=== PATIENT | male | born 1950 | race African-American/Black ===

== ENCOUNTER 2018-02-24 12:14 | Emergency (ER) | payer BC ==
[2018-02-24 12:34] VITALS: BP 160/123; PULSE 81; TEMP 99.2; BMI 30.4
--- NOTE | 2018-02-24 12:39 | PDOC ---
History of Present Illness - General Chief Complaint: Pain Stated Complaint: TINGLING AND NUMBNESS IN LEFT TOES Time Seen by Provider: 02/24/18 12:15 - History of Present Illness Initial Comments: 67 year old male with no PMH and poor PCP follow up presenting with left foot numbness and tingling for the past year that has acutely worsened over the past few months. He state thte numbness and tingling is worse with walking and and activity and has now begun to interfere with his work occasionally. He is an active 3/4 pack smoker with 25+ pack years. He was told that he had "borderline diabetes" in the past. Denies nausea, vomiting, diarrhea, constipation, fevers, chills, chest pain, SOB at rest/ exertion, or other symptoms. 02/24/18 12:39 Past History - Past Medical History Allergies/Adverse Reactions: Allergies Allergy/AdvReac Type Severity Reaction Status Date / Time No Known Allergies Allergy Verified 02/24/18 12:27 Home Medications: Ambulatory Orders NK [No Known Home Medication] 02/24/18 COPD: No - Surgical History Appendectomy: Yes - Suicide/Smoking/Psychosocial Hx Smoking History: Current every day smoker Number of Cigarettes Smoked Daily: 15 Information on smoking cessation initiated: Yes 'Breaking Loose' booklet given: 02/24/18 Hx Alcohol Use: No Drug/Substance Use Hx: No Substance Use Type: None Review of Systems - Review of Systems Constitutional: No: Chills, Diaphoresis, Fever HEENTM: No: Blurred Vision, Tearing Respiratory: No: Cough, Orthopnea, Shortness of Breath, Stridor Cardiac (ROS): No: Chest Pain, Edema, Irregular Heart Rate ABD/GI: No: Constipated, Diarrhea, Nausea, Vomiting : No: Burning, Dysuria, Discharge, Hematuria Musculoskeletal: No: Back Pain, Joint Pain, Muscle Pain Integumentary: No: Bruising, Change in Color, Flushing, Lesions, Lumps Neurological: No: Headache, Numbness, Paresthesia Endocrine: No: Excessive Sweating, Flushing Hematologic/Lymphatic: No: Anemia, Blood Clots, Easy Bleeding *Physical Exam - Vital Signs Last Vital Signs Temp Pulse Resp BP Pulse Ox 99.2 F 81 16 160/123 99 02/24/18 12:15 02/24/18 12:15 02/24/18 12:15 02/24/18 12:15 02/24/18 12:15 - Physical Exam General Appearance: Yes: Nourished ED Treatment Course - LABORATORY CBC & Chemistry Diagram: 02/24/18 12:45 02/24/18 12:45 Medical Decision Making - Medical Decision Making 67 year old male with PMH of borderline diabetes and extensive smoking history in the setting of poor PCP follow up presenting with left toe numbness/ paresthesias worse with movement. This is most concerning for diabetic nephropathy vs. PVD. Labs roughly WNL so will DC with pcp follow up. 02/24/18 14:15 *DC/Admit/Observation/Transfer Diagnosis at time of Disposition: Peripheral neuropathy Qualifiers: Peripheral neuropathy type: mononeuropathy, other Qualified Code(s): G58.8 - Other specified mononeuropathies - Discharge Dispostion Disposition: HOME Condition at time of disposition: Improved Decision to Admit order: No - Referrals Referrals: [facility] [place] [Provider Group] - Patient Instructions Printed Discharge Instructions: Peripheral Neuropathy Additional Instructions: Your tingling and numbness is probably from nerve damage from your smoking and borderline diabetes. Please follow up at the [facility] or chose one of our many excellent [facility] physicians. Please return to the ED for new or worsening symptoms. - Post Discharge Activity
--- NOTE | 2018-02-24 13:10 | PDOC ---
Attending Attestation - Resident Resident Name: RyanLigiacharleyeva - ED Attending Attestation I have performed the following: I have examined & evaluated the patient, The case was reviewed & discussed with the resident, I agree w/resident's findings & plan, Exceptions are as noted - HPI HPI: 02/24/18 12:46 67-year-old male with past medical history of heavy smoking, borderline diabetes , no primary care physician presents with several months of paresthesia to his left toes. States that he was initially intermittent associated with distal left calf pain upon and bleeding. Patient works for [employer] and works at the local [employer]. 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 Walks frequently throughout the details. Has noticed that his tingling and numbness in his left great toe would persist while walking. Because he had no PMD, came into the ED. - Physicial Exam PE: 02/24/18 12:49 GENERAL: Awake, alert, and fully oriented, in no acute distress. HEAD: No signs of trauma EYES: EOMI, sclera anicteric, conjunctiva clear ENT: Auricles normal inspection, hearing grossly normal, nares patent NECK: Normal ROM, supple EXTREMITIES: LLE: 2+ DP intact. Sensation intact throughout all toes and feet and lower extremities. Ana Lilia sign negative. Pelletier test negative. FROM left ankle. NEUROLOGICAL: Cranial nerves II through XII grossly intact. Normal speech, normal gait SKIN: Warm, Dry, normal turgor, no rashes or lesions noted. - Medical Decision Making 02/24/18 13:10 Vital Signs Temp Pulse Resp BP Pulse Ox 99.2 F 81 16 160/123 99 02/24/18 12:15 02/24/18 12:15 02/24/18 12:15 02/24/18 12:15 02/24/18 12:15 67 yo M p/w several months of intermittent parasthesias. I suspect that the patient is developing peripheral neuropathy. Will check basic labs to look for metabolic disarray and for glucose. If glucose markedly elevated, will need to consider starting on metformin. Will need to refer patient for a PMD. 02/24/18 14:17 CBC, BMP 02/24/18 12:45 02/24/18 12:45 CMP Sodium 137 mmol/L (136-145) 02/24/18 12:45 Potassium 3.9 mmol/L (3.5-5.1) 02/24/18 12:45 Chloride 108 mmol/L (98-107) H 02/24/18 12:45 Carbon Dioxide 22 mmol/L (22-28) 02/24/18 12:45 Anion Gap 7 (8-16) L 02/24/18 12:45 BUN 18 mg/dl (7-18) 02/24/18 12:45 Creatinine 1.3 mg/dl (0.6-1.3) 02/24/18 12:45 Creat Clearance w eGFR 55.40 (>60) 02/24/18 12:45 Random Glucose 84 mg/dl (74-106) 02/24/18 12:45 Calcium 8.9 mg/dl (8.4-10.2) 02/24/18 12:45 Total Bilirubin 0.2 mg/dl (0.2-1.0) 02/24/18 12:45 AST 20 U/L (10-42) 02/24/18 12:45 ALT 15 U/L (10-40) 02/24/18 12:45 Alkaline Phosphatase 45 U/L (32-92) 02/24/18 12:45 Total Protein 7.3 g/dl (6.4-8.3) 02/24/18 12:45 Albumin 4.2 g/dl (3.5-5.0) 02/24/18 12:45 Glucose is unremarkable. However, pt does have elements of likely peripheral neuropathy, perhaps even peripheral vascular disease. Smoke cessation counselling and follow up with a PMD.
[2018-02-24 13:59] LABS: ALBUMIN 4.2 g/dl (3.5-5.0); ALK PHOS 45 U/L (32-92); ANION GAP 7 (8-16); BILIRUBIN,TOTAL 0.2 mg/dl (0.2-1.0); BLOOD UREA NITROGEN 18 mg/dl (7-18); CALCIUM 8.9 mg/dl (8.4-10.2); CHLORIDE 108 mmol/L (98-107); CO2 22 mmol/L (22-28); CREATININE 1.3 mg/dl (0.6-1.3); GLUCOSE,RANDOM 84 mg/dl (74-106); POTASSIUM 3.9 mmol/L (3.5-5.1); SGOT/AST 20 U/L (10-42); SGPT/ALT 15 U/L (10-40); SODIUM 137 mmol/L (136-145); TOT PROT 7.3 g/dl (6.4-8.3)
[2018-02-24 14:01] LABS: BASO % 1.1 % (0-2.0); EOS % 4.9 % (0-4.5); HEMOGLOBIN 14.5 GM/dl (11.7-16.9); LYMPH % 28.5 % (8-40); MCH 28.5 pg (25.7-33.7); MEAN CELL VOLUME 86.3 fl (80-96); MEAN PLT VOLUME 8.1 fl (7.5-11.1); MONO % 6.9 % (3.8-10.2); NEUT % 58.6 % (42.8-82.8); PLATELET COUNT 265 K/MM3 (134-434); RDW 16.6 % (11.9-15.9)
== END 2018-02-24 14:39 | disposition home or self-care (01) ==
LOC: FER 12:14
DX: G58.8 Other specified mononeuropathies (principal); F17.210 Nicotine dependence, cigarettes, uncomplicated; R73.03 Prediabetes
CPT/HCPCS: 36415; 80053; 85025; 99283-25

== ENCOUNTER 2018-06-23 10:15 | Day surgery (SDC) | payer BC ==
[2018-06-22 13:53] VITALS: BMI 36.5
[2018-06-23] MEDS ORDERED: HEPARIN NA (PORCINE) 5,000 UNITS/ML 1ML VIAL ONE (13:08)
[2018-06-23] MEDS ORDERED: LIDOCAINE HCL 2% (20ML MULTI-DOSE VIAL) NR ONE (13:09)
[2018-06-23] MEDS ORDERED: KETOROLAC TROMETHAMINE 30 MG/1 ML VIAL ONE (13:29)
[2018-06-23] MEDS ORDERED: MIDAZOLAM HCL 2 MG/2 ML SINGLE DOSE VIAL ONE ×2 (13:29)
[2018-06-23] MEDS ORDERED: ceFAZolin SODIUM 1 GM VIAL ONE (13:29)
[2018-06-23] MEDS ORDERED: ceFAZolin SODIUM 1 GM VIAL IVPB ONE (13:31)
[2018-06-23] MEDS ORDERED: LIDOCAINE HCL 1%, 10 MG/ML (20ML VIAL) NR ONE ×2 (13:42)
[2018-06-23] MEDS ORDERED: HEPARIN NA (PORCINE) 5,000 UNITS/ML 1ML VIAL SQ ONE (13:45)
[2018-06-23] MEDS ORDERED: PROPOFOL 20 ML ONE (13:49)
[2018-06-23] MEDS ORDERED: oxyCODONE HCL 5 MG TABLET PO PRN (14:29)
[2018-06-23] MEDS ORDERED: PROMETHAZINE HCL 25 MG/1 ML VIAL IVPUSH PRN (14:29)
[2018-06-23] MEDS ORDERED: ONDANSETRON 4 MG/2 ML VIAL IVPUSH PRN (14:29)
[2018-06-23] MEDS ORDERED: LACTATED RINGERS SOLUTION 1,000 ML IV SCH (14:30)
--- NOTE | 2018-06-23 14:37 | HP ---
Admitting History and Physical - Admission Chief Complaint: left lower ext claudication Limitations to Obtaining History: No Limitations - Smoking History Smoking history: Former smoker Have you smoked in the past 12 months: Yes Aproximately how many cigarettes per day: 15 If you are a former smoker, when did you quit?: February 2018 - Alcohol/Substance Use Hx Alcohol Use: No Home Medications - Allergies Allergies/Adverse Reactions: Allergies Allergy/AdvReac Type Severity Reaction Status Date / Time No Known Allergies Allergy Verified 06/23/18 11:38 - Home Medications Home Medications: Ambulatory Orders Aspirin [ASA -] 1 tab PO DAILY 05/09/18 Cholecalciferol (Vitamin D3) [Vitamin D -] 1 tab PO DAILY 05/09/18 Amlodipine Besylate 5 mg PO DAILY 06/22/18 Review of Systems - Review of Systems Constitutional: reports: No Symptoms Eyes: reports: No Symptoms HENT: reports: No Symptoms Neck: reports: No Symptoms Cardiovascular: reports: No Symptoms Respiratory: reports: No Symptoms Gastrointestinal: reports: No Symptoms Genitourinary: reports: No Symptoms Musculoskeletal: reports: No Symptoms Integumentary: reports: No Symptoms Neurological: reports: No Symptoms Endocrine: reports: No Symptoms Hematology/Lymphatic: reports: No Symptoms Psychiatric: reports: No Symptoms Physical Examination Vital Signs: Vital Signs Temperature 98.2 F 06/23/18 11:37 Pulse Rate 64 06/23/18 11:37 Respiratory Rate 20 06/23/18 11:37 Blood Pressure 139/66 06/23/18 11:37 O2 Sat by Pulse Oximetry (%) 100 06/23/18 11:26 Constitutional: Yes: Well Nourished, No Distress, Calm Eyes: Yes: WNL, Conjunctiva Clear, EOM Intact HENT: Yes: WNL, Atraumatic, Normocephalic Neck: Yes: WNL, Supple, Trachea Midline Cardiovascular: Yes: WNL, Regular Rate and Rhythm Respiratory: Yes: WNL, Regular, CTA Bilaterally Gastrointestinal: Yes: WNL, Normal Bowel Sounds Musculoskeletal: Yes: WNL Extremities: Yes: WNL Edema: No Integumentary: Yes: WNL Neurological: Yes: WNL, Alert, Oriented ...Motor Strength: WNL Psychiatric: Yes: WNL Problem List - Problems (1) Left leg claudication Assessment/Plan: Left leg claudication 1. For angiogram today Code(s): I73.9 - PERIPHERAL VASCULAR DISEASE, UNSPECIFIED (2) Left leg pain Code(s): M79.605 - PAIN IN LEFT LEG
--- NOTE | 2018-06-23 14:38 | OP ---
Operative Note - Note: Operative Date: 06/23/18 Pre-Operative Diagnosis: left leg claudication Operation: Aortogram, LLE angiogram, SFA angioplasty with stent Post-Operative Diagnosis: Same as Pre-op Surgeon: Sourav Corbin Anesthesia: Fractional Estimated Blood Loss (mls): 50 Operative Report Dictated: Yes
[2018-06-23] MEDS ORDERED: CLOPIDOGREL BISULFATE 75 MG TABLET (FP) PO SCH (14:45)
[2018-06-23] MEDS ORDERED: CLOPIDOGREL BISULFATE 75 MG TABLET (FP) ONE (14:59)
[2018-06-23 15:14] VITALS: TEMP 98
[2018-06-23 19:33] VITALS: BP 149/60; PULSE 53
--- NOTE | 2018-07-20 15:13 | OP ---
DATE OF OPERATION: 06/23/2018 PREOPERATIVE DIAGNOSIS: Left lower extremity claudication. POSTOPERATIVE DIAGNOSIS: Left lower extremity claudication. PROCEDURE: Aortogram, left lower extremity angiogram, superficial femoral artery angioplasty with stent placement. SURGEON: Sourav Stanford DO ANESTHESIA: Fractional. BLOOD LOSS: 50 mL. INDICATIONS: The patient is a 67-year-old male who came in to see us because he had claudication in his left lower extremity. Preoperative ultrasound showed that he had SFA disease and he needed an angiogram. The patient was consented for this procedure understanding all risks, benefits, and alternatives and then taken to the operating room. DESCRIPTION OF PROCEDURE: Once in the operating room, he was laid on the operating room table in a supine manner. The right and left groin were prepped and draped in a sterile surgical manner. We then went ahead and injected 10 mL of lidocaine 1% over the right common femoral artery. We then went ahead and punctured the right common femoral artery using a micropuncture needle. Micropuncture wire was inserted, and a traditional 5-Mauritanian sheath was inserted. We then placed a 0.035 floppy guidewire up into the aorta followed by an Omni Flush catheter. We then shot an aortogram via hand injection showing that the aorta and the iliac arteries were without any disease. We then brought our wire up and over to the left common femoral artery followed by the Omni Flush catheter. We then shot an angiogram of the left lower extremity showing that the common femoral artery, the profunda, and the proximal SFA were patent, but the [id number] SFA had stenosis of 80%-85%. The popliteal artery stent was patent, and the patient had 2-vessel runoff into the foot. At this point, we placed a 0.035 stiff guidewire into the SFA. We took out our Omni Flush catheter out. A 6 x 45 crossover sheath was placed. Then 5000 units of IV heparin was administered to the patient. We then placed our 0.035 stiff guidewire down into the SFA followed by a Quick-Cross catheter, and we selectively crossed our lesion and placed a wire into the popliteal artery. We then went ahead and used a 5 x 8 Ultraverse balloon and performed angioplasty of the SFA. We then went ahead and did a completion angiogram via hand injection showing that the area in the SFA is now dissected but is patent. At this point, we took a 6 x 8 Lifestent and placed a 6 x 8 Lifestent in the left SFA and ballooned that in place using a 5 x 8 balloon. Completion angiogram now showed that the SFA was patent. There was good brisk flow. The patient had 2-vessel runoff into the foot. At this point, we brought our sheath up and over. StarClose device was successfully deployed in the right common femoral artery. Pressure held for 5 minutes. After there was no more bleeding, the area was wet and dried, and Dermabond was placed. The patient tolerated the procedure with no complications. The patient was transferred to the PACU in stable condition. SOURAV STANFORD DO NP/[id number]
== END 2018-06-23 16:40 | disposition home or self-care (01) ==
LOC: JASU-SURG 10:15
PROVIDERS: ATTEND Surgery Vascular Surgery
PROC: 047L3DZ Dilation of Left Femoral Artery with Intraluminal Device, Percutaneous Approach (ICD-10-PCS; principal; 2018-06-23 13:00)
DX: I70.212 Atherosclerosis of native arteries of extremities with intermittent claudication, left leg (principal)
CPT/HCPCS: 37226; C1877; 76000-TC-FY; 94760; J1644

== ENCOUNTER 2018-10-14 11:57 | Emergency (ER) | payer BC ==
[2018-10-14 12:03] VITALS: BP 137/71; PULSE 75; TEMP 98.4; BMI 33.4
[2018-10-14] MEDS ORDERED: guaiFENesin/D-METHORPHAN HB 1 EACH TAB.ER.12H PO ONE (12:32)
--- NOTE | 2018-10-14 12:32 | PDOC ---
History of Present Illness - General Chief Complaint: Respiratory Stated Complaint: COUGH Time Seen by Provider: 10/14/18 12:03 History Source: Patient Exam Limitations: No Limitations - History of Present Illness Initial Comments: 10/14/18 12:44 The patient is a 68M with a PMH of HTN and PVD on AC who presents to the ER with complaints of cough, congestion, scratchy throat x 3 days. The patient states that he's had 3 days of the above symptoms with runny nose. He denies fever, chills, nausea, vomiting, CP, SOB. He states that this "feels like a cold , but worse". Past History - Past Medical History Allergies/Adverse Reactions: Allergies Allergy/AdvReac Type Severity Reaction Status Date / Time No Known Allergies Allergy Verified 10/14/18 12:04 Home Medications: Ambulatory Orders Aspirin [ASA -] 1 tab PO DAILY 05/09/18 Cholecalciferol (Vitamin D3) [Vitamin D -] 1 tab PO DAILY 05/09/18 Amlodipine Besylate 5 mg PO DAILY 06/22/18 Clopidogrel Bisulfate [Plavix -] 75 mg PO DAILY #30 tablet 06/23/18 Rosuvastatin [Crestor -] 10 mg PO DAILY 10/14/18 Tamsulosin HCl [Flomax] 0.4 mg PO DAILY 10/14/18 Anemia: No Asthma: No Cancer: No Cardiac Disorders: No CVA: No COPD: No CHF: No Dementia: No Diabetes: No GI Disorders: No Disorders: No HTN: Yes Hypercholesterolemia: Yes Liver Disease: No Seizures: No Thyroid Disease: No - Surgical History Appendectomy: Yes - Suicide/Smoking/Psychosocial Hx Smoking History: Former smoker Have you smoked in the past 12 months: Yes Number of Cigarettes Smoked Daily: 15 If you are a former smoker, when did you quit?: February 2018 Information on smoking cessation initiated: No 'Breaking Loose' booklet given: 06/22/18 Hx Alcohol Use: No Drug/Substance Use Hx: No Substance Use Type: None Review of Systems - Review of Systems Able to Perform ROS?: Yes Is the patient limited Gabonese proficient: No Constitutional: No: Chills, Fever HEENTM: Yes: Nose Congestion, Other ("scratchy throat"). No: Blurred Vision, Nose Pain, Throat Swelling, Difficulty Swallowing Respiratory: Yes: Cough. No: Shortness of Breath, Productive cough Cardiac (ROS): No: Chest Pain, Edema, Palpitations ABD/GI: No: Nausea, Vomiting *Physical Exam - Vital Signs Last Vital Signs Temp Pulse Resp BP Pulse Ox 98.4 F 75 18 137/71 98 10/14/18 12:01 10/14/18 12:01 10/14/18 12:01 10/14/18 12:01 10/14/18 12:01 - Physical Exam General Appearance: Yes: Nourished, Appropriately Dressed. No: Apparent Distress HEENT: positive: Normal Voice, Hearing Grossly Normal. negative: Tonsillar Exudate, Tonsillar Erythema Neck: positive: Trachea midline, Supple. negative: Lymphadenopathy (R), Lymphadenopathy (L) Respiratory/Chest: positive: Normal Breath Sounds. negative: Respiratory Distress Cardiovascular: positive: Regular Rhythm, Regular Rate, S1, S2 Extremity: positive: Normal Inspection, Normal Range of Motion Integumentary: positive: Dry, Warm Neurologic: positive: Fully Oriented, Alert, Normal Mood/Affect Moderate Sedation - Procedure Monitoring Vital Signs: Procedure Monitoring Vital Signs Temperature 98.4 F 10/14/18 12:01 Pulse Rate 75 10/14/18 12:01 Respiratory Rate 18 10/14/18 12:01 Blood Pressure 137/71 10/14/18 12:01 O2 Sat by Pulse Oximetry (%) 98 10/14/18 12:01 Medical Decision Making - Medical Decision Making 10/14/18 12:46 The patient is a 68M with a PMH of HTN who presents with cold-symptoms x 3 days. Will treat symptomatically. No fever, chills, muscle aches makes it less likely to be influenza or a bacterial infection. PE unremarkable. Will give supportive care and d/c with PCP f/u. *DC/Admit/Observation/Transfer Diagnosis at time of Disposition: Viral URI, Viral URI with cough - Discharge Dispostion Disposition: HOME Condition at time of disposition: Stable Decision to Admit order: No - Referrals - Patient Instructions Printed Discharge Instructions: Common Cold Additional Instructions: Please follow up with your primary care physician in 2-3 days. Please return to the ER if you have any signs or symptoms of chest pain, shortness of breath, uncontrollable fever, chills, nausea, vomiting, numbness, tingling, or weakness in any part of your body, changes in vision, or slurred speech. Please take your medications as prescribed. Please return to the ER if symptoms persist, worsen, or new symptoms arise. - Post Discharge Activity
[2018-10-14] MEDS ORDERED: ACETAMINOPHEN 325 MG TABLET (FP) PO ONE (12:33)
[2018-10-14] MEDS ORDERED: guaiFENesin 600 MG TABLET.ER (FP) PO ONE (12:34)
[2018-10-14] MEDS ORDERED: ACETAMINOPHEN 325 MG TABLET (FP) ONE (12:34)
--- NOTE | 2018-10-14 12:41 | PDOC ---
Attending Attestation - Resident Resident Name: Cem Skinner - ED Attending Attestation I have performed the following: I have examined & evaluated the patient, The case was reviewed & discussed with the resident, I agree w/resident's findings & plan, Exceptions are as noted - HPI HPI: 10/14/18 12:40 68y M hx of htn presents with 3 days of scratchy throat, runny nose, nonprudcive cough, nasal congestion without fever/chills, cp, sob, roach, n/v, diaprhoeis, leg swelling, hemoptysis. Works in a [employer]. was worried he may hav strep throat exam vitals reviewed and wnl general: well appaering, NAD pulm: cta bl ent: clear posterior pharynx wo erythema/exudates card: rrr,. no mrg suspect rhinitis/uri supportive management at home pmd fu return precautions wre discussed 10/14/18 13:17 - Physicial Exam PE: 10/14/18 13:17 see above - Medical Decision Making 10/14/18 13:17 see above
== END 2018-10-14 13:06 | disposition home or self-care (01) ==
LOC: FER 11:57
DX: J06.9 Acute upper respiratory infection, unspecified (principal); B97.89 Other viral agents as the cause of diseases classified elsewhere; R05 Cough; I10 Essential (primary) hypertension; Z87.891 Personal history of nicotine dependence; E78.00 Pure hypercholesterolemia, unspecified
CPT/HCPCS: 99282-25

== ENCOUNTER 2018-10-21 13:38 | Emergency (ER) | payer BC ==
[2018-10-21 13:45] VITALS: TEMP 98; BMI 33.4
[2018-10-21] MEDS ORDERED: SODIUM CHLORIDE FOR INHALATION 3 ML VIAL.NEB IH ONE (13:51)
[2018-10-21 13:52] VITALS: BP 135/89; PULSE 65
--- NOTE | 2018-10-21 13:54 | PDOC ---
History of Present Illness - General Chief Complaint: Cold Symptoms Stated Complaint: SORE THROAT, CONGESTION Time Seen by Provider: 10/21/18 13:39 - History of Present Illness Initial Comments: 10/21/18 13:51 68 M with h/o HTN, PVD on plavix, presenting to ED with 10 days of cough. Pt states that he has had a cough productive of clear sputum, associated with sore throat. He was seen here last week and told he had a viral URI. However, pt reports his symptoms have not improved. He has been taking mucinex at home with no relief. He also tried his 's albuterol nebulizer, which he states helped temporarily. Pt endorses subjective fevers but no measured temps. Denies CP/ SOB. Denies leg swelling. No recent travel/immobilization. Past History - Past Medical History Allergies/Adverse Reactions: Allergies Allergy/AdvReac Type Severity Reaction Status Date / Time No Known Allergies Allergy Verified 10/21/18 13:38 Home Medications: Ambulatory Orders Aspirin [ASA -] 1 tab PO DAILY 05/09/18 Cholecalciferol (Vitamin D3) [Vitamin D -] 1 tab PO DAILY 05/09/18 Amlodipine Besylate 5 mg PO DAILY 06/22/18 Clopidogrel Bisulfate [Plavix -] 75 mg PO DAILY #30 tablet 06/23/18 Rosuvastatin [Crestor -] 10 mg PO DAILY 10/14/18 Tamsulosin HCl [Flomax] 0.4 mg PO DAILY 10/14/18 Anemia: No Asthma: No Cancer: No Cardiac Disorders: No CVA: No COPD: No CHF: No Dementia: No Diabetes: No GI Disorders: No Disorders: No HTN: Yes Hypercholesterolemia: Yes Liver Disease: No Seizures: No Thyroid Disease: No - Surgical History Abdominal Surgery: Yes (HERNIA) Appendectomy: Yes - Suicide/Smoking/Psychosocial Hx Smoking History: Never smoked Have you smoked in the past 12 months: Yes Number of Cigarettes Smoked Daily: 15 If you are a former smoker, when did you quit?: February 2018 'Breaking Loose' booklet given: 06/22/18 Hx Alcohol Use: No Drug/Substance Use Hx: No Substance Use Type: None Review of Systems - Review of Systems Comments:: 10/21/18 13:53 "GENERAL/CONSTITUTIONAL: No fever or chills. No weakness. HEAD, EYES, EARS, NOSE AND THROAT: + sore throat, No change in vision. No ear pain or discharge. CARDIOVASCULAR: No chest pain, no shortness of breath, no loss of consciousness RESPIRATORY: + cough, no wheezing, or hemoptysis. GASTROINTESTINAL: No nausea, vomiting, diarrhea or constipation. GENITOURINARY: No dysuria, frequency, or change in urination. MUSCULOSKELETAL: No joint or muscle swelling or pain. No neck or back pain. SKIN: No rash NEUROLOGIC: No vertigo, no change in strength/sensation. ENDOCRINE: No increased thirst. No abnormal weight change. HEMATOLOGIC/LYMPHATIC: No anemia, easy bleeding, or history of blood clots. ALLERGIC/IMMUNOLOGIC: No hives or skin allergy. *Physical Exam - Vital Signs Last Vital Signs Temp Pulse Resp BP Pulse Ox 98.0 F 65 17 135/89 100 10/21/18 13:38 10/21/18 13:38 10/21/18 13:38 10/21/18 13:38 10/21/18 13:38 - Physical Exam Comments: 10/21/18 13:53 ENERAL: Awake, alert, and fully oriented, in no acute distress. HEAD: No signs of trauma EYES: PERRLA, EOMI, sclera anicteric, conjunctiva clear ENT: Auricles normal inspection, hearing grossly normal, nares patent, oropharynx clear without exudates. Moist mucosa NECK: Nontender, no stepoffs, Normal ROM, supple, no lymphadenopathy, JVD, or masses LUNGS: Breath sounds equal, clear to auscultation bilaterally. No wheezes, and no crackles HEART: Regular rate and rhythm, normal S1 and S2, no murmurs, rubs or gallops ABDOMEN: Soft, nontender, normoactive bowel sounds. No guarding, no rebound. No masses EXTREMITIES: Normal range of motion, no edema. No clubbing or cyanosis. No cords, erythema, or tenderness NEUROLOGICAL: Cranial nerves II through XII intact. 5/5 strength and sensation in all extremities, Normal speech, normal gait, normal cerebellar function SKIN: Warm, Dry, normal turgor, no rashes or lesions noted. Moderate Sedation - Procedure Monitoring Vital Signs: Procedure Monitoring Vital Signs Temperature 98.0 F 10/21/18 13:38 Pulse Rate 65 10/21/18 13:38 Respiratory Rate 17 10/21/18 13:38 Blood Pressure 135/89 10/21/18 13:38 O2 Sat by Pulse Oximetry (%) 100 10/21/18 13:38 ED Treatment Course - RADIOLOGY Radiology Studies Ordered: Category Date Time Status CHEST PA & LAT [RAD] Stat Radiology 10/21/18 13:51 Ordered Medical Decision Making - Medical Decision Making 10/21/18 13:54 68 M with cough and sore throat x 10 days. Will r/o PNA with CXR. Also consider strep, though clinically no signs of it. - CXR - Rapid strep - Saline nebulizer 10/21/18 15:14 Strep negative CXR possible consolidation. Will empirically tx with Azithromycin Pt is well appearing, with normal vitals. Clinically stable for DC at this time. I discussed the physical exam findings, ancillary test results and final diagnoses with the patient. I answered all of the patient's questions. The patient was satisfied with the care received and felt comfortable with the discharge plan and treatment plan. The patient agrees to follow up with the primary care physician within 24-72 hours. *DC/Admit/Observation/Transfer Diagnosis at time of Disposition: Cough - Discharge Dispostion Disposition: HOME Condition at time of disposition: Stable - Referrals Referrals: Justyna Knutson MD [Primary Care Provider] - - Patient Instructions Printed Discharge Instructions: DI for Acute Bronchitis Additional Instructions: Take the antibiotics as prescribed (azithromycin 250mg daily starting tomorrow). Follow up with your primary doctor on Wednesday as scheduled. If you experience worsening cough, chest pain, shortness of breath, or any other concerning symptoms, return to the ER immediately. - Post Discharge Activity - Attestations Physician Attestion: 10/21/18 15:18 I, Dr. Neftali Eid MD, attest that this document has been prepared under my direction and personally reviewed by me in its entirety. I further attest, that it accurately reflects all work, treatment, procedures and medical decision -making performed by me.
[2018-10-21] MEDS ORDERED: AZITHROMYCIN 250 MG TABLET PO ONE (15:10)
[2018-10-21] MEDS ORDERED: AZITHROMYCIN 500 MG TABLET ONE (15:16)
== END 2018-10-21 15:24 | disposition home or self-care (01) ==
LOC: FER 13:38 → SUPCPDRO 13:38 → FER 15:24
PROC: 3E0F7GC Introduction of Other Therapeutic Substance into Respiratory Tract, Via Natural or Artificial Opening (ICD-10-PCS; principal; 2018-10-21)
DX: R05 Cough (principal); I10 Essential (primary) hypertension; I73.9 Peripheral vascular disease, unspecified; Z79.01 Long term (current) use of anticoagulants
CPT/HCPCS: 71046-TC-FY; 87070; 87880; 99282-25

== ENCOUNTER 2019-02-14 12:34 | Emergency (ER) | payer BC ==
--- NOTE | 2019-02-14 12:40 | PDOC ---
History of Present Illness - General Chief Complaint: Respiratory Stated Complaint: COUGH CONGESTED Time Seen by Provider: 02/14/19 12:37 History Source: Patient Exam Limitations: No Limitations - History of Present Illness Initial Comments: 02/14/19 12:37 68 year old male with PMH HTN, HLD presented to ED for productive cough/nasal congestion/generalized weakness/chills x3 days. Pt stated his sputum is green to brown. Pt denied blood in sputum. Pt denied chest pain, shortness of breath. Pt reported he last took his statin and amlodipine x7 days ago, he has been unable to get a prescription. Allergies: NKDA Past History - Past Medical History Allergies/Adverse Reactions: Allergies Allergy/AdvReac Type Severity Reaction Status Date / Time No Known Allergies Allergy Verified 02/14/19 12:35 Home Medications: Ambulatory Orders Aspirin [ASA -] 1 tab PO DAILY 05/09/18 Clopidogrel Bisulfate [Plavix -] 75 mg PO DAILY #30 tablet 06/23/18 Rosuvastatin [Crestor -] 10 mg PO DAILY 10/14/18 Tamsulosin HCl [Flomax] 0.4 mg PO DAILY 10/14/18 Amlodipine Besylate [Norvasc -] 5 mg PO DAILY #30 tablet 01/02/19 Amlodipine Besylate 5 mg PO DAILY #7 tablet 02/14/19 Doxycycline Hyclate 100 mg PO BID #13 capsule 02/14/19 Rosuvastatin [Crestor -] 10 mg PO DAILY #7 tablet 02/14/19 Anemia: No Asthma: No Cancer: No Cardiac Disorders: No CVA: No COPD: No CHF: No Dementia: No Diabetes: No GI Disorders: No Disorders: No HTN: Yes Hypercholesterolemia: Yes Liver Disease: No Seizures: No Thyroid Disease: No - Surgical History Abdominal Surgery: Yes (HERNIA) Appendectomy: Yes - Suicide/Smoking/Psychosocial Hx Smoking History: Never smoked Have you smoked in the past 12 months: Yes Number of Cigarettes Smoked Daily: 15 If you are a former smoker, when did you quit?: February 2018 'Breaking Loose' booklet given: 06/22/18 Hx Alcohol Use: No Drug/Substance Use Hx: No Substance Use Type: None Review of Systems - Review of Systems Able to Perform ROS?: Yes Comments:: 02/14/19 12:38 General: admitted to chills, generalized weakness. denied fever. HEENT: admitted to nasal congestion. denied sore throat, ear pain. Heart: denied chest pain, palpitations, syncope, diaphoresis. Respiratory: admitted to cough, sputum production. denied shortness of breath, hemoptysis. Abdomen: denied abdominal pain, nausea, vomiting, diarrhea, constipation, blood in stool. : denied dysuria, increased urinary frequency, hematuria, urinary incontinence , flank pain. Back: denied back pain. Musculoskeletal: denied joint pain, muscle pain, joint swelling. Neurological: denied headache, dizziness, numbness, tingling, weakness. Skin: denied rash, laceration, abrasion. *Physical Exam - Physical Exam Comments: 02/14/19 12:39 Constitutional: Well-nourished, Well-developed, appearing stated age. HEENT: head is normocephalic, atraumatic. EOMI. PERRLA. Neck: supple. Full ROM. Heart: regular rhythm. no murmurs, rubs or gallops. Lungs: clear to auscultation bilaterally. no crackles, rhonchi or wheezing. no stridor. Abdomen: soft, nontender. normal bowel sounds. no rebound, guarding, masses. Extremities: peripheral pulses intact. no lower extremity edema. Neurological: CN 2-12 grossly intact. moves all four extremities. Psych: awake, alert, oriented x3. follows commands. answers questions appropriately. Medical Decision Making - Medical Decision Making 02/14/19 12:39 68 year old male with above PMH presented to ED for cough with sputum production , nasal congestion, generalized weakness, chills x3 days. Initial Vital Signs Temp Pulse Resp BP Pulse Ox 97.7 F 72 16 125/79 100 02/14/19 12:35 02/14/19 12:35 02/14/19 12:35 02/14/19 12:35 02/14/19 12:35 Afebrile. No tachycardia. No tachypnea. No hypertension. No hypoxia on room air. Labs ordered: none Imaging ordered: CXR Medications ordered: Tylenol 975 mg PO 02/14/19 13:[address] Shannon's read: no infiltrate. blunting to right costophrenic angle. no cardiomegaly. no pulmonary vascular congestion. Pt has produtive sputum, will treat with doxycycline x7 days. Pt discharged. Pt is out of stain and amlodipine, 7 day script sent to pharmacy. 02/16/19 12:08 Follow up: Official CXR report: COPD. no other abnormalities. *DC/Admit/Observation/Transfer Diagnosis at time of Disposition: Productive cough - Discharge Dispostion Disposition: HOME Condition at time of disposition: Stable Decision to Admit order: No - Prescriptions Prescriptions: Amlodipine Besylate 5 mg PO DAILY #7 tablet Doxycycline Hyclate 100 mg PO BID #13 capsule Rosuvastatin [Crestor -] 10 mg PO DAILY #7 tablet - Referrals Referrals: Justyna Knutson MD [Primary Care Provider] - - Patient Instructions Additional Instructions: You were seen today for a productive cough. I have sent a prescription for an antibiotic to your pharmacy, pick it up today and take as advised on label. You took the first dose here in the Emergency Department. I have sent a 1 week supply of the medications you have run out of to your pharmacy. Take as advised on labels. Call your doctor today to have your medications refilled. Take Tylenol over the counter for pain/fever. Take as advised on label. Follow up with your primary care doctor within 3 days. Your care is not complete until you follow up. Return to the Emergency Department for fever despite Tylenol use, increasing pain despite Tylenol use, coughing up blood, chest pain, shortness of breath, lightheadedness like you may pass out, or any other new, worsening or concerning symptoms. - Post Discharge Activity
[2019-02-14] MEDS ORDERED: ACETAMINOPHEN 325 MG TABLET (FP) PO ONE (12:45)
[2019-02-14 12:58] VITALS: BP 125/79; PULSE 72; TEMP 97.7; BMI 33.4
[2019-02-14] MEDS ORDERED: ACETAMINOPHEN 325 MG TABLET (FP) ONE (13:03)
[2019-02-14] MEDS ORDERED: DOXYCYCLINE HYCLATE 100 MG CAPSULE PO ONE ×2 (13:16→13:18)
--- NOTE | 2019-02-14 13:26 | PDOC ---
Attending Attestation - Resident Resident Name: Yolie Yang - ED Attending Attestation I have performed the following: I have examined & evaluated the patient, The case was reviewed & discussed with the resident, I agree w/resident's findings & plan, Exceptions are as noted - HPI HPI: 02/14/19 13:24 68 years old with past medical history significant for hypertension hyperlipidemia former smoker stopped one year ago presents ED with productive cough and sputum no chest pain or shortness of breath also ran out of his home medications Symptoms are moderate persistent concent there are no exacerbating or alleviating factors - Physicial Exam PE: 02/14/19 13:24 Vitals: Triage Vital signs reviewed General Appearance: no acute distress, well nourished well developed, Head: Atraumatic, Neck: Supple;No Nucal rigidity Chest Wall: Nontender Cardiac: Regular rate and rhythym, no murmurs, no rubs, no gallops, Lungs: Clear to auscultation bilateral, good air movement bilaterally, Abdomen: Soft, non distended, normal bowel sounds, non tender to palpation Extremities: Full range of motion to all extremities, no cyanosis, clubbing, or edema Skin: Warm and dry, no rashes or lesions, no rash, no petechiae Psych: normal mood, normal affect - Medical Decision Making 02/14/19 13:25 History examination consistent with clinical pneumonia no obvious infiltrate on x-ray however given productive sputum we'll treat with 70 course of doxycycline and have patient follow up with his primary care provider this week. Findings, the need for follow-up and strict return instructions discussed with patient.
== END 2019-02-14 13:24 | disposition home or self-care (01) ==
LOC: FER 12:34
DX: R05 Cough (principal); I10 Essential (primary) hypertension; E78.00 Pure hypercholesterolemia, unspecified; Z87.891 Personal history of nicotine dependence
CPT/HCPCS: 71046-TC-FY; 99281-25

== ENCOUNTER 2020-06-03 09:54 | Emergency (ER) | payer BC ==
[2020-06-03 10:01] VITALS: BP 148/85; PULSE 65; TEMP 98.1; BMI 33.4
[2020-06-03] MEDS ORDERED: IBUPROFEN 400 MG TABLET (FP) PO ONE ×2 (10:04→10:10)
--- NOTE | 2020-06-03 10:16 | PDOC ---
History of Present Illness - General Chief Complaint: Pain, Acute Stated Complaint: UPPER BACK/SHL PAIN Time Seen by Provider: 06/03/20 09:55 History Source: Patient Exam Limitations: No Limitations - History of Present Illness Initial Comments: 06/03/20 10:34 69y M with PMH of HTN, HLD, BPH, PVD, Renal Mass s/p resection 10/2019 presenting to the ER for R upper back pain x 1 week worsening today. Pt states the pain is in the R upper back, near the scapula and is constant. Denies any injuries, excessive arm use, pain with arm movement. He has been applying a patch but it does not help. He has not had this problem before. Denies chest pain, pleuritic chest pain, sob, leg swelling, palpitations, cough, congestion, numbness/tingling, neck pain, headache, abdominal pain, n/v/d, leg pain, weakness. PMD: PMH: see hpi PSH: appendectomy, hernia repair, mass resection Meds: Plavix, amlodipine, Crestor, flomax Allergies: nkda Social: quit smoking 2 years ago 0 Past History - Medical History Allergies/Adverse Reactions: Allergies Allergy/AdvReac Type Severity Reaction Status Date / Time No Known Allergies Allergy Verified 06/03/20 09:55 Home Medications: Ambulatory Orders Aspirin [ASA -] 1 tab PO DAILY 05/09/18 Clopidogrel Bisulfate [Plavix -] 75 mg PO DAILY #30 tablet 06/23/18 Rosuvastatin [Crestor -] 10 mg PO DAILY 10/14/18 Tamsulosin HCl [Flomax] 0.4 mg PO DAILY 10/14/18 Amlodipine Besylate 5 mg PO DAILY #7 tablet 02/14/19 Anemia: No Asthma: No Cancer: No Cardiac Disorders: No CVA: No COPD: No CHF: No Dementia: No Diabetes: No GI Disorders: No Disorders: No HTN: Yes Hypercholesterolemia: Yes Liver Disease: No Seizures: No Thyroid Disease: No - Surgical History Abdominal Surgery: Yes (HERNIA, RENAL MASS RESECTION) Appendectomy: Yes - Psycho-Social/Smoking History Smoking History: Unknown if ever smoked Have you smoked in the past 12 months: No Number of Cigarettes Smoked Daily: 15 If you are a former smoker, when did you quit?: February 2018 'Breaking Loose' booklet given: 06/22/18 - Substance Abuse Hx (Audit-C & DAST Scrn) How often the patient has a drink containing alcohol: Never Score: In Men: 4 or > Positive; In Women: 3 or > Positive: 0 Screen Result (Pos requires Nsg. Audit-10AR): Negative Review of Systems - Review of Systems Constitutional: No: Chills, Fever, Weakness HEENTM: No: Symptoms Reported Respiratory: No: Cough, Orthopnea, Shortness of Breath, Wheezing Cardiac (ROS): No: Chest Pain, Lightheadedness, Palpitations, Syncope, Chest Tightness ABD/GI: No: Constipated, Diarrhea, Nausea, Vomiting : No: Symptoms Reported Musculoskeletal: Yes: See HPI Integumentary: No: Symptoms Reported Neurological: No: Symptoms reported *Physical Exam - Vital Signs Last Vital Signs Temp Pulse Resp BP Pulse Ox 98.1 F 65 20 148/85 99 06/03/20 09:55 06/03/20 09:55 06/03/20 09:55 06/03/20 09:55 06/03/20 09:55 - Physical Exam General Appearance: Yes: Nourished, Appropriately Dressed. No: Apparent Distress HEENT: positive: EOMI, SONAM, Normal ENT Inspection Neck: positive: Trachea midline, Supple. negative: Tender, Lymphadenopathy (R), Lymphadenopathy (L) Respiratory/Chest: positive: Lungs Clear. negative: Chest Tender, Accessory Muscle Use, Crackles, Rales, Rhonchi, Stridor, Wheezing Cardiovascular: positive: Regular Rhythm, Regular Rate, S1, S2. negative: Edema, JVD, Murmur Vascular Pulses: Carotid (R): 2+, Carotid (L): 2+ Gastrointestinal/Abdominal: positive: Normal Bowel Sounds, Soft. negative: Tender Musculoskeletal: negative: CVA Tenderness, Decreased Range of Motion, Muscle Spasm, Vertebral Tenderness Extremity: positive: Normal Capillary Refill. negative: Pedal Edema, Swelling, Calf Tenderness Integumentary: positive: Normal Color, Dry, Warm Neurologic: positive: machine brusher II-XII NML intact, Fully Oriented, Alert, Normal Mood/Affect, Normal Response, Motor Strength 5/5 ED Treatment Course - LABORATORY CBC & Chemistry Diagram: 06/03/20 10:20 06/03/20 10:20 - RADIOLOGY Radiology Studies Ordered: Category Date Time Status CXR [CHEST PA & LAT] [RAD] Stat Radiology 06/03/20 10:08 Ordered - Medications Given in the ED: ED Medications Discontinued Medications Generic Name Dose Route Start Last Admin Trade Name Unique PRN Reason Stop Dose Admin Ibuprofen 400 mg 06/03/20 10:04 06/03/20 10:14 Motrin - PO 06/03/20 10:05 400 mg ONCE ONE Administration Medical Decision Making - Medical Decision Making 06/03/20 10:43 69y M with pmh of htn, hld, pvd presenting to the eR for r upper back pain x 1 week. vitals wnl pe benign, no tenderness to palpation, no mass, normal ROM of extremities. ddx includes msk pain, mass/malignancy, pna, mi, fracture, cholelithaisis/cholecystitis less likely with normal abdominal exam and no n/v. less likely pe with no sob, no chest pain, no hemoptysis normal vital signs; pt is not on beta dorcas to reduce hr. no recent surgeries. 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 twi in II, III, aVF, V5-V6 same to ekg in 2018. no acute changes no rivera or depressions. normal intervals. 06/03/20 11:20 CXR: clear lungs, normal suad, normal heart. no changes since cxr 01/2019. 06/03/20 11:42 labs wnl, cr baseline, pain is slightly diminished. pt does not have any concerning findings on labs or imaging. low suspicion for dissection, pe or thoracic aneurysm. will give referral to orthopedics. pt can make appointment with pmd this week. dc instructions discussed and return precautions provided. pt is hemodynamically stable, will dc home Discharge - Discharge Information Problems reviewed: Yes Clinical Impression/Diagnosis: Back pain Qualifiers: Back pain location: thoracic back pain Chronicity: unspecified Back pain laterality: right Qualified Code(s): M54.6 - Pain in thoracic spine Condition: Good Disposition: HOME - Admission No - Follow up/Referral Referrals: Neftali Ramirez MD [Staff Physician] - Barron Miller MD [Staff Physician] - Artis Morales MD [Staff Physician] - Mauricio Gilmore MD [Staff Physician] - Stan Roberto DO [Staff Physician] - Rei Mason DO [Staff Physician] - - Patient Discharge Instructions Patient Printed Discharge Instructions: DI for Thoracic Back Pain Additional Instructions: You were seen in the ER today for back pain. Your blood tests, EKG and Xray appear normal. This pain is likely muscular. I recommend taking Tylenol as needed for the pain. You can take Advil as needed. I also recommend using a heating pad. Drink plenty of water. Below is a list of orthopedic doctors, you can call to schedule an appointment. Please follow up with your primary car doctor this week. Return to the ER if you have worsening pain, chest pain, shortness of breath, vomiting or if any new or concerning symptom develops. Thank you - Post Discharge Activity
--- NOTE | 2020-06-03 10:21 | PDOC ---
Attending Attestation - Resident Resident Name: Sarah Reese - ED Attending Attestation I have performed the following: I have examined & evaluated the patient, The case was reviewed & discussed with the resident, I agree w/resident's findings & plan, Exceptions are as noted - HPI HPI: 06/03/20 10:23 69 yo M h/o HTN, HLD p/w R sided upper back pain, constant x1 week but worsening today. Denies any preceding trauma. Not worse with movement or inspiration. Denies chest pain. States never had before. Denies cough or SOB. Denies fevers. - Physicial Exam PE: 06/03/20 10:27 General: well appearing Chest: CTAB, good air entry, no wheezes rales or rhonchi CVS: +s1 s2, RRR Back: no midline or paraspinal tenderness Extremities: FROM, strength preserved, sensation intact to light touch - Medical Decision Making 06/03/20 10:27 69 yo M with R sided atraumatic upper back pain, unremarkable physical exam, possible msk pain vs. ACS (atypical presentation) vs. very unlikely PNA as patient without any infectious complaints vs. mass (pt is a former smoker). Given duration of symptoms and patient very comfortable appearing very unlikely dissection. Plan: -labs -cxr -EKG -pain control as needed -reassess This clinical encounter is taking place during a federal and state health care emergency attributable to the novel [place] Virus pandemic. The [place] of the Department of Health and Human Services has declared, pursuant to the Public Health Service Act 319F-3 (42 U.S[place]C. 247d-6d), that a covered persons activities related to medical countermeasures against COVID-19 will be immune from liability under Federal and State law. 06/03/20 11:32 Labs and imaging reviewed. EKG unchanged from prior. Will d/c with return precautions, recommend PMD f/u. Discharge - Discharge Information Problems reviewed: Yes Clinical Impression/Diagnosis: Back pain Qualifiers: Back pain location: thoracic back pain Chronicity: unspecified Back pain laterality: right Qualified Code(s): M54.6 - Pain in thoracic spine Condition: Stable - Follow up/Referral - Patient Discharge Instructions - Post Discharge Activity
[2020-06-03 11:14] LABS: BASO % 1.7 % (0-2.0); EOS % 8.3 % (0-4.5); LYMPH % 31.9 % (8-40); MCH 28.7 pg (25.7-33.7); MCHC 33.3 g/dl (32.0-35.9); MEAN CELL VOLUME 86.2 fl (80-96); MEAN PLT VOLUME 6.9 fl (7.5-11.1); NEUT % 51.1 % (42.8-82.8); PLATELET COUNT 297 K/MM3 (134-434); RBC 4.88 M/mm3 (4.00-5.60); RDW 15.6 % (11.9-15.9); WHITE BLOOD COUNT 6.7 K/mm3 (4.0-10.8)
[2020-06-03 11:17] LABS: BILIRUBIN,TOTAL 0.5 mg/dl (0.2-1); CREATININE 1.6 mg/dl (0.55-1.3); POTASSIUM 4.3 mmol/L (3.5-5.1); TOT PROT 7.2 g/dl (6.4-8.2)
--- NOTE | 2020-06-04 10:52 | EKG ---
Test Reason : Blood Pressure : / mmHG Vent. Rate : 062 BPM Atrial Rate : 062 BPM P-R Int : 166 ms QRS Dur : 078 ms QT Int : 384 ms P-R-T Axes : 061 020 -59 degrees QTc Int : 389 ms NORMAL SINUS RHYTHM T WAVE ABNORMALITY, CONSIDER INFERIOR ISCHEMIA ABNORMAL ECG NO PREVIOUS ECGS AVAILABLE Confirmed by Tomas Hatfield MD ([id number]) on 06/04/2020 10:51:51 AM Referred By: Confirmed By:Tomas Hatfield MD
== END 2020-06-03 11:45 | disposition home or self-care (01) ==
LOC: FER 09:54
DX: M54.6 Pain in thoracic spine (principal)
CPT/HCPCS: 36415; 71046-TC-FY; 80053; 84484; 85025; 93005; 99285-25

== ENCOUNTER 2022-06-22 10:25 | Emergency (ER) | payer BC ==
[2022-06-22 10:48] VITALS: BP 144/66; PULSE 70; RESP 20; TEMP 98.7; BMI 28.3
[2022-06-22] MEDS ORDERED: LIDOCAINE HCL 2% (20ML MULTI-DOSE VIAL) ONE (10:48)
[2022-06-22] MEDS ORDERED: SULFAMETHOXAZOLE/TRIMETHOPRIM 800MG/160MG D.S. TABLET PO ONE (11:01)
[2022-06-22] MEDS ORDERED: CEPHALEXIN MONOHYDRATE 500 MG CAPSULE (UD) PO ONE (11:01)
[2022-06-22] MEDS ORDERED: SULFAMETHOXAZOLE/TRIMETHOPRIM 800MG/160MG D.S. TABLET ONE (11:05)
[2022-06-22] MEDS ORDERED: CEPHALEXIN MONOHYDRATE 500 MG CAPSULE (UD) ONE (11:06)
== END 2022-06-22 11:24 | disposition home or self-care (01) ==
LOC: FER 10:25
PROC: 0H9NXZZ Drainage of Left Foot Skin, External Approach (ICD-10-PCS; principal; 2022-06-22)
DX: L03.032 Cellulitis of left toe (principal)
CPT/HCPCS: 99283-25

== ENCOUNTER 2022-12-24 10:09 | Emergency (ER) | payer BC ==
[2022-12-24 10:29] VITALS: BP 141/84; PULSE 59; RESP 20; TEMP 98.3; BMI 28.7
[2022-12-24 12:11] LABS: HEMATOCRIT 40.4 % (35.4-49); HEMOGLOBIN 13.5 GM/dL (11.7-16.9); MCH 27.7 pg (25.7-33.7); MCHC 33.3 g/dl (32.0-35.9); MEAN CELL VOLUME 83.2 fl (80-96); MEAN PLT VOLUME 7.2 fl (7.5-11.1); PLATELET COUNT 262 10^3/uL (134-434); RBC 4.86 M/mm3 (4.00-5.60); RDW 17.3 % (11.9-15.9)
[2022-12-24 12:21] LABS: ALBUMIN 4.3 g/dl (3.4-5.0); BILIRUBIN,TOTAL 0.9 mg/dl (0.2-1); CALCIUM 8.9 mg/dl (8.5-10); CREATININE 1.1 mg/dl (0.55-1.3); TOT PROT 7.5 g/dl (6.4-8.2)
== END 2022-12-24 14:07 | disposition home or self-care (01) ==
LOC: FER 10:09
DX: R10.32 Left lower quadrant pain (principal); R11.0 Nausea; R19.7 Diarrhea, unspecified
CPT/HCPCS: 36415; 74177-TC; 80053; 81003; 81015; 85027; 99285-25; Q9967

== ENCOUNTER 2023-03-10 09:19 | Emergency (ER) | payer BC ==
[2023-03-10 09:31] VITALS: BP 134/71; PULSE 62; RESP 20; TEMP 98.6; BMI 24.0
[2023-03-10] MEDS ORDERED: ACETAMINOPHEN 500 MG TABLET (FP) PO ONE (09:35)
[2023-03-10] MEDS ORDERED: IBUPROFEN 400 MG TABLET (FP) PO ONE ×2 (09:37→09:44)
[2023-03-10] MEDS ORDERED: ACETAMINOPHEN 500 MG TABLET (FP) ONE (09:44)
[2023-03-10 11:51] LABS: THROAT:GRP A STREP NOT DETECTED (NOTDETECTED)
== END 2023-03-10 10:02 | disposition home or self-care (01) ==
LOC: FER 09:19
DX: R07.0 Pain in throat (principal); R09.89 Other specified symptoms and signs involving the circulatory and respiratory systems; R05.9 Cough, unspecified; J06.9 Acute upper respiratory infection, unspecified; Z20.822 Contact with and (suspected) exposure to COVID-19
CPT/HCPCS: 0241U-QW; 87651; 99283-25

== ENCOUNTER 2023-04-05 09:06 | Emergency (ER) | payer BC ==
[2023-04-05 09:11] VITALS: BP 133/74; PULSE 66; RESP 16; TEMP 98.4; BMI 28.7
== END 2023-04-05 10:30 | disposition home or self-care (01) ==
LOC: FER 09:06
DX: M79.671 Pain in right foot (principal)
CPT/HCPCS: 73630-TC-RT-FY; 99283-25

== ENCOUNTER 2024-06-26 04:13 | Day surgery (SDC) | payer BC ==
[2024-06-21 13:06] VITALS: BMI 33.1
[2024-06-26] MEDS ORDERED: PROPOFOL 40 ML ONE (08:20)
[2024-06-26] MEDS ORDERED: MIDAZOLAM HCL 2 MG/2 ML SINGLE DOSE VIAL ONE (09:10)
[2024-06-26 10:02] VITALS: RESP 16; TEMP 97.6
[2024-06-26 11:04] VITALS: BP 128/70; PULSE 68
== END 2024-06-26 11:08 | disposition home or self-care (01) ==
LOC: JASU-SURG 04:13
PROVIDERS: ATTEND Urology
PROC: 0TF3XZZ Fragmentation in Right Kidney Pelvis, External Approach (ICD-10-PCS; principal; 2024-06-26 09:00)
DX: N20.0 Calculus of kidney (principal)